=== PATIENT | male | born 1950 | race Caucasian/White ===

== ENCOUNTER 2018-10-06 16:06 | Inpatient (IN) ==
[2018-10-06] MEDS ORDERED: Furosemide 40 MG TABLET PO PRN (17:05)
[2018-10-06] MEDS ORDERED: BENZOYL PEROXIDE APPL TP PRN (17:05)
[2018-10-06] MEDS ORDERED: Albuterol 2.5 MG/3 ML NEBULIZER IH PRN (17:05)
[2018-10-06] MEDS ORDERED: Mag Hydrox/Al Hydrox/Simeth 30 ML UDC PO PRN (17:30)
[2018-10-06] MEDS ORDERED: Ondansetron ODT 4 MG TAB.RAPDIS SL PRN (17:31)
[2018-10-06] MEDS: Gabapentin 300 MG CAPSULE PO SCH ×2 (18:52→20:53)
[2018-10-06] MEDS: Azithromycin 250 MG TABLET PO SCH (20:52)
[2018-10-06] MEDS: Melatonin 3 MG TABLET PO SCH (20:53)
[2018-10-06] MEDS: Morphine Sulfate ER (12 HR) 15 MG TABLET.ER PO SCH (20:53)
[2018-10-06] MEDS: GuaiFENesin Liq 200 MG/10 ML UDC PO SCH (20:53)
[2018-10-06] MEDS: Sucralfate 1 GM TABLET PO SCH (20:53)
[2018-10-06] MEDS: Mirtazapine 15 MG TABLET PO SCH (20:53)
[2018-10-06] MEDS: Budesonide/Formoterol 160/4.5 1 PUFF INH IH SCH (21:26)
[2018-10-07] MEDS: Acetaminophen 325 MG TABLET PO PRN (04:43)
[2018-10-07] MEDS: Levothyroxine 25 MCG TABLET PO SCH (04:43)
[2018-10-07] MEDS: Tiotropium 18 MCG inhalation IH SCH (07:26)
[2018-10-07] MEDS: Budesonide/Formoterol 160/4.5 1 PUFF INH IH SCH ×2 (07:29→20:28)
[2018-10-07] MEDS: Morphine Sulfate ER (12 HR) 15 MG TABLET.ER PO SCH ×2 (07:48→20:03)
[2018-10-07] MEDS: levoFLOXacin 750 MG TABLET PO SCH (07:48)
[2018-10-07] MEDS: Sucralfate 1 GM TABLET PO SCH ×3 (07:48→15:22)
[2018-10-07] MEDS: GuaiFENesin Liq 200 MG/10 ML UDC PO SCH ×3 (07:48→20:03)
[2018-10-07] MEDS: Gabapentin 300 MG CAPSULE PO SCH ×4 (07:48→20:02)
[2018-10-07] MEDS: Metoprolol XL (24 HR) Succ 25 MG TAB.ER.24H PO SCH (07:48)
[2018-10-07] MEDS: Lactobacillus 1 EACH CAP.SPRINK PO SCH (07:48)
[2018-10-07 08:00] LABS: Basophils % 0.3 %; Eosinophils # 0.3 K/mcL (0.0-0.6); Eosinophils % 2.5 %; Hemoglobin 8.7 g/dL (12.9-16.9); Immature Granulocytes % 4.6 % (0-4); Lymphocytes # 0.9 K/mcL (0.6-4.6); Lymphocytes % 9.2 %; Mean Corpuscular HGB Conc 31.1 g/dL (31.6-35.5); Mean Corpuscular Hemoglobin 29.5 pg (28.0-33.3); Mean Corpuscular Volume 94.9 fL (83.0-100.0); Mean Platelet Volume 10.1 fL (9.4-12.4); Monocytes # 1.1 K/mcL (0.0-1.3); Monocytes % 10.4 %; Neutrophils # 7.4 K/mcL (1.6-8.9); Red Blood Count 2.95 M/mcL (4.19-5.50); Red Cell Distribution Width 14.5 % (11.5-14.5); White Blood Count 10.2 K/mcL (4.3-11.1)
[2018-10-07 08:04] LABS: Platelet Count 376 K/mcL (140-400)
[2018-10-07] MEDS: Fluticasone Propionate Nasal 50 MCG/SPRAY BOTTLE NS SCH (09:43)
--- NOTE | 2018-10-07 10:03 | Internal Med History&Physical ---
Date of Encounter: 10/07/18 Time of Encounter: 09:55 Assessment and Plan (1) Upper GI bleed Current visit: Yes Status: Acute Patient is a recent admission to the facility for further rehabilitation after being treated for upper GI bleed and severe anemia at an [facility]. Patient currently states that he still has tarry stools but no quincy blood noted. This morning's hemoglobin was 8.7, which is stable with yesterday's hemoglobin being at 8.6. did become winded today during ambulation with his saturations dropping to 86% while on 4 L. Patient took several minutes to recuperate his saturation greater than 90% while at rest. We will repeat patient's labs in the morning and monitor for signs of active bleeding. Patient's vital signs have remained stable. We will continue with current therapy. (2) Sepsis Current visit: Yes Status: Acute Patient with no current signs of sepsis with vital signs remaining stable and he has remained afebrile. Patient's WBC was 10.2 which is down from his previous elevations approximately one week prior. Patient to continue on current medications and current antibiotics. Qualifiers: Sepsis type: sepsis due to unspecified organism Qualified Code(s): A41.9 - Sepsis, unspecified organism (3) Pneumonia Current visit: No Status: Acute No acute issues. Patient continues to show mild congestion to the base for [place]. No productive cough. Afebrile. Patient to continue on current antibiotics. Qualifiers: Pneumonia type: due to unspecified organism Laterality: bilateral Lung location: lower lobe of lung Qualified Code(s): J18.1 - Lobar pneumonia, unspecified organism (4) Hypertension Current visit: No Status: Chronic Patient's vital signs remained stable. We will continue on current medications. Qualifiers: Hypertension type: unspecified Qualified Code(s): I10 - Essential (primary) hypertension Internal Medicine - H&P: HPI Chief complaint: Upper GI bleed Admitted From: Hospital to Hospital Transfer Plans for Post Hospital Care: Home History of present illness: Mr. Garcia is a 68 year old male, who was transferred to this facility from [facility] after being treated for an acute upper GI bleed, pneumonia and sepsis. Patient also with a history of HTN, hypothyroidism, anx/dep, chronic back pain, and recurrent GI bleeds and s/p hemicolectomy. He had presented at [facility] on 09/24/2018 with several episodes blood in his stools. Patient's initial labs showed he was anemic with hemoglobin of 9. In the hospital, GI took patient for EGD/enteroscopy 09/24 showing esophageal polyps and single red spot in stomach treated with APC. Colonoscopy 09/24 and again 09/26 with old blood throughout entire colon, but no acute bleeding after extensive washing. Tagged RBC scan 09/25, but was unable to identify additional source. Continued bleeding and transfusion requirements, however (total 8u), and a repeat EGD/push enteroscopy on 09/30 showed nonbleeding cratered gastric ulcer 2cm, which was cauterized, and a single 5mm nonbleeding angiodysplastic lesion in stomach also cauterized. No further bleeding and Hb thereafter remained stable. Hospital course complicated by pneumonia and sepsis requiring abx; no source identified and pt de-escalated from zosyn to levaquin after fever and leukocytosis resolved. Pt was deconditioned and transferred to this facility for further rehabilitation This morning patient appears relaxed and states that he had ambulated earlier with physical therapy and became very winded. Therapy has reported patient desaturated while ambulating on 4 L of oxygen to as low as 86%. They reported patient took several minutes to recover his saturations greater than 90% while resting. Patient denied any chest discomforts or palpitations. Patient denies any current productive cough. Today's hemoglobin was measured at 8.7. Patient states that he continues to have dark tarry stools but no quincy blood observed. Past Med Surg Social Fam HX - Past Medical History Medical history: COPD, GERD, GI bleed, hyperlipidemia, hypertension, thyroid disease, other Additional medical history: Skin cancer on the face- basal cell Psychiatric history: anxiety, depression - Past Surgical History Surgical History: colectomy, other Additional surgical history: laminectomy, Right foot surgery, Left wrist surgery - Social History Smoking Status: Former smoker Smokeless Tobacco Status: No Alcohol use: rarely Drug use: none - Family History Sister Living Status: Age at : 80 Hx Family Cardiac Disorders: Yes (CHF) Hx Family Respiratory Disorders: Yes (COPD) Mother Living Status: Hx Family Cardiac Disorders: Yes Hx Family Respiratory Disorders: No Hx Family Cancer: Yes (Lymphoma) Hx Family GI Disorders: Yes (Ulcers) Hx Family Endocrine Disorder: No Hx Family Neuromuscular Disorders: No Hx Family Neurologic Disorders: No Hx Family HEENT Disorders: No Hx Family Autoimmune Disorders: No Father Living Status: Hx Family Cancer: Yes Internal Medicine - H&P: Meds Albuterol Neb [Proventil Neb] 2.5 mg IH QID PRN 12/23/15 [History] Budesonide/Formoterol 160/4.5 [Symbicort 160/4.5] 2 puff IH BID 12/23/15 [History] Fluticasone Propionate Nasal [Flonase] 2 spray NS DAILY 12/23/15 [History] Gabapentin [Neurontin] 1,200 mg PO HS 12/23/15 [History] Gabapentin [Neurontin] 900 mg PO QAM 12/23/15 [History] L. Acidophilus/Pectin, [place] [Acidophilus Probiotic Capsule] 1 cap PO DAILY 12/23/15 [History] Levothyroxine [Synthroid] 25 mcg PO DAILY 12/23/15 [History] Albuterol Sulfate [Albuterol Inhaler] 2 puff IH Q6HR PRN 08/14/16 [History] Furosemide [Lasix] 40 mg PO DAILY PRN 06/10/18 [History] Meloxicam [Mobic] 7.5 mg PO BID 06/10/18 [History] Metoprolol Succinate [Toprol Xl] 12.5 mg PO DAILY 06/10/18 [History] Tiotropium [place] [Spiriva Respimat] 2 puff IH DAILY 06/10/18 [History] guaiFENesin [Guaifenesin] 400 mg PO TID 06/10/18 [History] Ergocalciferol (VITAMIN D2) [Vitamin D2] 50,000 unit PO FR 09/23/18 [History] Escitalopram [Lexapro] 20 mg PO QAM 09/23/18 [History] Melatonin [Melatin] 3 mg PO HS 09/23/18 [History] Prazosin [Minipress] 5 mg PO QAM 09/23/18 [History] Atorvastatin [Lipitor] 20 mg PO DAILY 09/25/18 [History] Azithromycin [Zithromax] 500 mg PO MOWEFR 09/25/18 [History] Benzoyl Peroxide [Bpo] 1 appl TP DAILY PRN 09/25/18 [History] Gabapentin [Neurontin] 900 mg PO QPM 09/25/18 [History] Mirtazapine [Remeron] 15 mg PO HS 09/25/18 [History] Lisinopril [Zestril] 20 mg PO DAILY #0 10/06/18 [Rx] Morphine Sulfate [Arymo ER] 30 mg PO BID 2 Days #4 tab.po.er 10/06/18 [Rx] Omeprazole [PriLOSEC] 40 mg PO BID #60 cap 10/06/18 [Rx] Sucralfate [Carafate] 1 gm PO QIDAC #99 tablet 10/06/18 [Rx] levoFLOXacin [Levaquin] 750 mg PO DAILY #5 tablet 10/06/18 [Rx] Allergy/AdvReac Type Severity Reaction Status Date / Time No Known Allergies Allergy Verified 09/25/18 10:36 All Systems PM: A 10-system review of systems was performed and is negative for pertinent findings except as documented above in the HPI. - Constitutional Constitutional: as per HPI - EENT Eyes: as per HPI Ears: as per HPI Nose, mouth and throat: as per HPI - Breasts Breasts: as per HPI - Cardiovascular Cardiovascular ROS IM: as per HPI - Respiratory Respiratory: as per HPI - Gastrointestinal Gastrointestinal: as per HPI - Genitourinary Genitourinary ROS male: as per HPI - Musculoskeletal Musculoskeletal ROS IM: as per HPI - Integumentary Integumentary IM: as per HPI - Neurological Neurological ROS: as per HPI - Psychiatric Psychiatric: as per HPI - Constitutional Vitals: Temp Pulse Resp BP Pulse Ox 97.6 F 93 15 132/78 90 10/07/18 07:16 10/07/18 07:16 10/07/18 07:28 10/07/18 07:16 10/07/18 07:28 General appearance: Present: A&O X 3, pleasant - Head Head exam: Present: atraumatic, normocephalic - Eye Eye exam: Present: PERRL, conjuntiva pink, sclera anicteric Pupils: Present: PERRL - Neck Neck exam general surgery: Present: supple, trachea midline. Absent: lymphadenopathy - Respiratory Respiratory exam: Present: CTAB, rales. Absent: accessory muscle use, rhonchi, wheezes Additional comments: Lungs are clear throughout upper han[place] but noted fine scattered rales throughout his lower posterior bases. Respiratory effort appears relaxed while at rest. No productive cough noted - Cardiovascular Cardiovascular exam: Present: RRR, +S1, +S2. Absent: diastolic murmur, gallop, rubs, systolic murmur - GI/Abdominal GI/Abdominal exam: Present: normal bowel sounds, soft, no peritoneal signs. Absent: distended, tenderness - Extremities Exam Extremities exam: Present: warm, radial pulses palpable and symmetrical. Absent : calf tenderness, cyanotic, pedal edema - Neurological Exam Neurological exam: Present: CN II-XII intact, oriented X3, no focal deficits. Absent: pronater drift, facial droop, speech deficit - Skin Skin exam: Present: dry, intact Internal Med - H&P Results - Labs CBC & Chem 7: 10/07/18 07:23 Labs: Short CBC 10/07/18 Range/Units 07:23 WBC 10.2 (4.3-11.1) K/mcL Hgb 8.7 L (12.9-16.9) g/dL Hct 28.0 L (37.5-50.1) % Plt Count 376 D (140-400) K/mcL Neutrophils # 7.4 (1.6-8.9) K/mcL
[2018-10-07 10:21] LABS: Alanine Aminotransferase 8 Units/L (7-52); Albumin 2.3 g/dL (3.5-5.7); Albumin/Globulin Ratio 0.8 (1.1-2.2); Alkaline Phosphatase 65 Units/L (34-104); Aspartate Amino Transferase 34 Units/L (13-39); BUN/Creatinine Ratio 17 (6-26); Bilirubin,Total 0.3 mg/dL (0.3-1.0); Blood Urea Nitrogen 13 mg/dL (8-23); Calcium 8.5 mg/dL (8.6-10.3); Carbon Dioxide 35 mEq/L (23-29); Chloride 97 mEq/L (98-107); Globulin 2.9 g/dL (2.4-3.5); Glucose 95 mg/dL (70-105); Magnesium 2.2 mg/dL (1.6-2.6); Osmolality,Calculated 282 (280-300); Potassium 3.6 mEq/L (3.5-5.1); Sodium 136 mEq/L (136-145); Total Protein 5.2 g/dL (6.4-8.9); eGFR For African Americans > 60 (> 60); eGFR For Non-African Americans > 60 (> 60)
[2018-10-07] MEDS: Mirtazapine 15 MG TABLET PO SCH (20:02)
[2018-10-07] MEDS: Melatonin 3 MG TABLET PO SCH (20:04)
[2018-10-08] MEDS: Sucralfate 1 GM TABLET PO SCH ×5 (00:01→20:36)
[2018-10-08] MEDS: Levothyroxine 25 MCG TABLET PO SCH (05:15)
[2018-10-08 06:34] LABS: Hematocrit 28.7 % (37.5-50.1); Hemoglobin 8.6 g/dL (12.9-16.9); Mean Corpuscular Volume 96.6 fL (83.0-100.0); Platelet Count 409 K/mcL (140-400); Red Blood Count 2.97 M/mcL (4.19-5.50); Red Cell Distribution Width 14.6 % (11.5-14.5); White Blood Count 10.4 K/mcL (4.3-11.1)
[2018-10-08 06:55] LABS: Alanine Aminotransferase 17 Units/L (7-52); Albumin 2.4 g/dL (3.5-5.7); Albumin/Globulin Ratio 0.8 (1.1-2.2); Alkaline Phosphatase 79 Units/L (34-104); Aspartate Amino Transferase 72 Units/L (13-39); BUN/Creatinine Ratio 16 (6-26); Bilirubin,Total 0.3 mg/dL (0.3-1.0); Blood Urea Nitrogen 12 mg/dL (8-23); Calcium 8.6 mg/dL (8.6-10.3); Carbon Dioxide 37 mEq/L (23-29); Chloride 98 mEq/L (98-107); Globulin 2.9 g/dL (2.4-3.5); Glucose 105 mg/dL (70-105); Magnesium 2.3 mg/dL (1.6-2.6); Osmolality,Calculated 290 (280-300); Potassium 4.3 mEq/L (3.5-5.1); Sodium 140 mEq/L (136-145); Total Protein 5.3 g/dL (6.4-8.9); eGFR For African Americans > 60 (> 60); eGFR For Non-African Americans > 60 (> 60)
[2018-10-08] MEDS: Metoprolol XL (24 HR) Succ 25 MG TAB.ER.24H PO SCH (08:03)
[2018-10-08] MEDS: Morphine Sulfate ER (12 HR) 15 MG TABLET.ER PO SCH (08:03)
[2018-10-08] MEDS: levoFLOXacin 750 MG TABLET PO SCH (08:03)
[2018-10-08] MEDS: Lactobacillus 1 EACH CAP.SPRINK PO SCH (08:03)
[2018-10-08] MEDS: GuaiFENesin Liq 200 MG/10 ML UDC PO SCH ×3 (08:04→20:37)
[2018-10-08] MEDS: Fluticasone Propionate Nasal 50 MCG/SPRAY BOTTLE NS SCH (08:04)
[2018-10-08] MEDS: Gabapentin 300 MG CAPSULE PO SCH ×4 (08:04→20:36)
--- NOTE | 2018-10-08 09:46 | Internal Med Progress Note ---
Date of Encounter: 10/08/18 Time of Encounter: 09:35 - Assessment and plan (1) Upper GI bleed Current Visit: Yes Status: Acute Assessment and plan: No acute issues. Patient continues to state that he has had dark stools but no quincy blood is been noted. Patient's labs showed hemoglobin stable at 8.6. Patient denies any abdominal cramping. We will continue to monitor closely. (2) Sepsis Current Visit: Yes Status: Acute Assessment and plan: No acute issues. Patient has remained afebrile with vital signs stable. Patient's last WBC was 10.4. Qualifiers: Sepsis type: sepsis due to unspecified organism Qualified Code(s): A41.9 - Sepsis, unspecified organism (3) Pneumonia Current Visit: No Status: Acute Assessment and plan: Patient continues to have fine basilar rales but otherwise no congestion or wheezes heard. No productive cough and has remained afebrile. Continues to finish out his round of antibiotics. We will continue to monitor closely. Qualifiers: Pneumonia type: due to unspecified organism Laterality: bilateral Lung location: lower lobe of lung Qualified Code(s): J18.1 - Lobar pneumonia, unspecified organism (4) Hypertension Current Visit: No Status: Chronic Assessment and plan: Vital signs are stable. We will continue with current medications Qualifiers: Hypertension type: unspecified Qualified Code(s): I10 - Essential (primary) hypertension - Time Spent With Patient less than 15 minutes - Subjective Interval history: Patient appears relaxed currently denies any discomforts or shortness of breath. Patient reportedly continues to desaturation while on oxygen and ambulating. Patient reportedly dropped to the mid 80s and her therapy takes several minutes to recover to a saturation greater than 90%. Patient also endorses orthopnea. Patient denies any chest discomforts or palpitations. Patient denies any productive cough. Patient reportedly is oxygen dependent and wears oxygen at home - Constitutional Vitals: Temp Pulse Resp BP Pulse Ox 98.3 F 83 16 120/72 94 10/08/18 07:38 10/08/18 07:38 10/08/18 07:38 10/08/18 07:38 10/08/18 07:38 General appearance: Present: A&O X 3, pleasant - Head Head exam: Present: atraumatic, normocephalic - Eye Eye exam: Present: PERRL, conjuntiva pink, sclera anicteric Pupils: Present: PERRL - Neck Neck exam general surgery: Present: supple, trachea midline. Absent: lymphadenopathy - Respiratory Respiratory exam: Present: CTAB, rales. Absent: accessory muscle use, rhonchi, wheezes Additional comments: Lungs remain clear throughout upper [place] with fine posterior bibasilar rales heard. Respiratory effort appears relaxed while at lunch. No productive cough noted. - Cardiovascular Cardiovascular exam: Present: RRR, +S1, +S2. Absent: diastolic murmur, gallop, rubs, systolic murmur - GI/Abdominal GI/Abdominal exam: Present: normal bowel sounds, soft, no peritoneal signs. A bsent: distended, tenderness - Extremities Exam Extremities exam: Present: warm, radial pulses palpable and symmetrical. Absent: calf tenderness, cyanotic, pedal edema - Neurological Exam Neurological exam: Present: CN II-XII intact, oriented X3, no focal deficits. Absent: pronater drift, facial droop, speech deficit - Skin Skin exam: Present: dry, intact Internal Medicine: Result - Labs CBC & Chem 7: 10/08/18 06:00 10/08/18 06:00 Labs: Short CBC 10/08/18 Range/Units 06:00 WBC 10.4 (4.3-11.1) K/mcL Hgb 8.6 L (12.9-16.9) g/dL Hct 28.7 L (37.5-50.1) % Plt Count 409 H (140-400) K/mcL BMP 10/07/18 10/08/18 07:23 06:00 Sodium 136 140 Potassium 3.6 4.3 Chloride 97 L 98 Carbon Dioxide 35 H 37 H BUN 13 12 Creatinine 0.78 0.76 Glucose 95 105 Calcium 8.5 L 8.6 Liver Function 10/07/18 10/08/18 Range/Units 07:23 06:00 Total Bilirubin 0.3 0.3 (0.3-1.0) mg/dL AST 34 72 H (13-39) Units/L ALT 8 17 (7-52) Units/L Alkaline Phosphatase 65 79 (34-104) Units/L Albumin 2.3 L 2.4 L (3.5-5.7) g/dL Consult Discharge Plan - Plan Referrals: Breezy Stover MD [Primary Care Provider] -
[2018-10-08] MEDS: Budesonide/Formoterol 160/4.5 1 PUFF INH IH SCH ×2 (10:32→20:11)
[2018-10-08] MEDS: Tiotropium 18 MCG inhalation IH SCH (10:32)
[2018-10-08] MEDS: Azithromycin 250 MG TABLET PO SCH (16:42)
[2018-10-08] MEDS: Mirtazapine 15 MG TABLET PO SCH (20:36)
[2018-10-08] MEDS: Melatonin 3 MG TABLET PO SCH (20:36)
[2018-10-08] MEDS: Morphine Sulfate ER (12 HR) 30 MG TABLET.ER PO SCH (20:36)
[2018-10-09] MEDS: Levothyroxine 25 MCG TABLET PO SCH (05:02)
[2018-10-09 05:28] LABS: Hemoglobin 8.2 g/dL (12.9-16.9); Mean Corpuscular HGB Conc 30.4 g/dL (31.6-35.5); Mean Corpuscular Hemoglobin 29.2 pg (28.0-33.3); Mean Corpuscular Volume 96.1 fL (83.0-100.0); Mean Platelet Volume 9.9 fL (9.4-12.4); Platelet Count 422 K/mcL (140-400); Red Blood Count 2.81 M/mcL (4.19-5.50); Red Cell Distribution Width 14.5 % (11.5-14.5)
[2018-10-09] MEDS: Acetaminophen 325 MG TABLET PO PRN (08:26)
[2018-10-09] MEDS: Gabapentin 300 MG CAPSULE PO SCH ×4 (08:26→21:44)
[2018-10-09] MEDS: Metoprolol XL (24 HR) Succ 25 MG TAB.ER.24H PO SCH (08:26)
[2018-10-09] MEDS: levoFLOXacin 750 MG TABLET PO SCH (08:27)
[2018-10-09] MEDS: Morphine Sulfate ER (12 HR) 30 MG TABLET.ER PO SCH ×2 (08:27→21:45)
[2018-10-09] MEDS: Sucralfate 1 GM TABLET PO SCH ×4 (08:27→22:00)
[2018-10-09] MEDS: GuaiFENesin Liq 200 MG/10 ML UDC PO SCH ×3 (08:27→21:45)
[2018-10-09] MEDS: Lactobacillus 1 EACH CAP.SPRINK PO SCH (08:27)
[2018-10-09] MEDS: Fluticasone Propionate Nasal 50 MCG/SPRAY BOTTLE NS SCH (08:31)
--- NOTE | 2018-10-09 09:45 | Internal Med Progress Note ---
Date of Encounter: 10/09/18 Time of Encounter: 09:42 - Assessment and plan (1) Upper GI bleed Current Visit: Yes Status: Acute Assessment and plan: No acute issues. Patient continues to state that he has had dark stools but no quincy blood is been noted. Patient's labs showed hemoglobin stable at 8.2. Patient denies any abdominal cramping. We will continue to monitor closely. (2) Sepsis Current Visit: Yes Status: Acute Assessment and plan: No acute issues. Patient has remained afebrile with vital signs stable. Patient's last WBC was 10.4. Qualifiers: Sepsis type: sepsis due to unspecified organism Qualified Code(s): A41.9 - Sepsis, unspecified organism (3) Pneumonia Current Visit: No Status: Acute Assessment and plan: Patient continues to have fine basilar rales but otherwise no congestion or wheezes heard. Patient states he has a productive cough with thick white sputum received. He has remained afebrile. Continues to finish out his round of antibiotics. We will continue to monitor closely. Qualifiers: Pneumonia type: due to unspecified organism Laterality: bilateral Lung location: lower lobe of lung Qualified Code(s): J18.1 - Lobar pneumonia, unspecified organism (4) Hypertension Current Visit: No Status: Chronic Assessment and plan: Vital signs are stable. We will continue with current medications Qualifiers: Hypertension type: unspecified Qualified Code(s): I10 - Essential (primary) hypertension - Time Spent With Patient less than 15 minutes - Subjective Interval history: Patient appears relaxed currently denies any discomforts or shortness of breath. Patient states that he has not desaturated while on oxygen and ambulating this morning. Patient denies any chest discomforts or palpitations. Patient states he has productive cough with a white thick sputum received. Patient reportedly is oxygen dependent and wears oxygen at home - Constitutional Vitals: Temp Pulse Resp BP Pulse Ox 98.5 F 85 16 131/76 92 10/09/18 06:48 10/09/18 06:48 10/09/18 06:48 10/09/18 06:48 10/09/18 06:48 General appearance: Present: A&O X 3, pleasant - Head Head exam: Present: atraumatic, normocephalic - Eye Eye exam: Present: PERRL, conjuntiva pink, sclera anicteric Pupils: Present: PERRL - Neck Neck exam general surgery: Present: supple, trachea midline. Absent: lymphadenopathy - Respiratory Respiratory exam: Present: CTAB, rales. Absent: accessory muscle use, rhonchi, wheezes Additional comments: Lungs are clear throughout upper [place] with fine rales heard scattered throughout lower third of his lung han[place]. Patient states a productive cough but none noted during exam. Respiratory effort appears relaxed while at rest - Cardiovascular Cardiovascular exam: Present: RRR, +S1, +S2. Absent: diastolic murmur, gallop, rubs, systolic murmur - GI/Abdominal GI/Abdominal exam: Present: normal bowel sounds, soft, no peritoneal signs. Absent: distended, tenderness - Extremities Exam Extremities exam: Present: warm, radial pulses palpable and symmetrical. Absent: calf tenderness, cyanotic, pedal edema - Neurological Exam Neurological exam: Present: CN II-XII intact, oriented X3, no focal deficits. Absent: pronater drift, facial droop, speech deficit - Skin Skin exam: Present: dry, intact Internal Medicine: Result - Labs CBC & Chem 7: 10/09/18 04:55 10/08/18 06:00 Labs: Short CBC 10/09/18 Range/Units 04:55 WBC 10.0 (4.3-11.1) K/mcL Hgb 8.2 L (12.9-16.9) g/dL Hct 27.0 L (37.5-50.1) % Plt Count 422 H (140-400) K/mcL Consult Discharge Plan - Plan Referrals: Breezy Stover MD [Primary Care Provider] -
[2018-10-09] MEDS: Tiotropium 18 MCG inhalation IH SCH (10:40)
[2018-10-09] MEDS: Budesonide/Formoterol 160/4.5 1 PUFF INH IH SCH ×2 (10:43→22:00)
[2018-10-09] MEDS: Melatonin 3 MG TABLET PO SCH (21:44)
[2018-10-09] MEDS: Mirtazapine 15 MG TABLET PO SCH (21:44)
[2018-10-10] MEDS: Levothyroxine 25 MCG TABLET PO SCH (04:56)
[2018-10-10] MEDS: GuaiFENesin Liq 200 MG/10 ML UDC PO SCH ×3 (07:43→21:59)
[2018-10-10] MEDS: Sucralfate 1 GM TABLET PO SCH ×4 (07:44→21:59)
[2018-10-10] MEDS: Lactobacillus 1 EACH CAP.SPRINK PO SCH (07:44)
[2018-10-10] MEDS: levoFLOXacin 750 MG TABLET PO SCH (07:44)
[2018-10-10] MEDS: Morphine Sulfate ER (12 HR) 30 MG TABLET.ER PO SCH ×2 (07:44→21:59)
[2018-10-10] MEDS: Gabapentin 300 MG CAPSULE PO SCH ×4 (07:44→21:58)
[2018-10-10] MEDS: Metoprolol XL (24 HR) Succ 25 MG TAB.ER.24H PO SCH (07:45)
[2018-10-10] MEDS: Fluticasone Propionate Nasal 50 MCG/SPRAY BOTTLE NS SCH (07:58)
--- NOTE | 2018-10-10 09:29 | Internal Med Progress Note ---
Date of Encounter: 10/10/18 Time of Encounter: 09:23 - Assessment and plan (1) Upper GI bleed Current Visit: Yes Status: Acute Assessment and plan: No acute issues. Patient patient states that he had a bowel movement yesterday and stool was no longer dark. Patient's labs showed hemoglobin stable at 8.2. Patient denies any abdominal cramping. We will continue to monitor closely. (2) Sepsis Current Visit: Yes Status: Acute Assessment and plan: No acute issues. Patient has remained afebrile with vital signs stable. Patient's last WBC was 10.4. Problem is resolved Qualifiers: Sepsis type: sepsis due to unspecified organism Qualified Code(s): A41.9 - Sepsis, unspecified organism (3) Pneumonia Current Visit: No Status: Acute Assessment and plan: Patient continues to have fine basilar rales but otherwise no congestion or wheezes heard. Patient states he has a productive cough with thick white sputum received. He has remained afebrile. Continues to finish out his round of antibiotics. We will continue to monitor closely. Qualifiers: Pneumonia type: due to unspecified organism Laterality: bilateral Lung location: lower lobe of lung Qualified Code(s): J18.1 - Lobar pneumonia, unspecified organism (4) Hypertension Current Visit: No Status: Chronic Assessment and plan: Vital signs are stable. We will continue with current medications Qualifiers: Hypertension type: unspecified Qualified Code(s): I10 - Essential (primary) hypertension - Time Spent With Patient less than 15 minutes - Subjective Interval history: Patient appears relaxed currently denies any discomforts or shortness of breath. He has productive cough with a white thick sputum received. Patient reportedly is oxygen dependent and wears oxygen at home. This morning per therapy, he desatuated to mid-80's while walking with O2 at 4L. - Constitutional Vitals: Temp Pulse Resp BP Pulse Ox 98.3 F 85 16 135/84 94 10/10/18 07:22 10/10/18 07:22 10/10/18 07:22 10/10/18 07:22 10/10/18 07:48 General appearance: Present: A&O X 3, pleasant - Head Head exam: Present: atraumatic, normocephalic - Eye Eye exam: Present: PERRL, conjuntiva pink, sclera anicteric Pupils: Present: PERRL - Neck Neck exam general surgery: Present: supple, trachea midline. Absent: lymphadenopathy - Respiratory Respiratory exam: Present: CTAB, rales. Absent: accessory muscle use, rhonchi, wheezes Additional comments: Patient continues with fine posterior bibasilar rales otherwise lungs clear. Respiratory effort appears relaxed respiratory - Cardiovascular Cardiovascular exam: Present: RRR, +S1, +S2. Absent: diastolic murmur, gallop, rubs, systolic murmur - GI/Abdominal GI/Abdominal exam: Present: normal bowel sounds, soft, no peritoneal signs. Absent: distended, tenderness - Extremities Exam Extremities exam: Present: warm, radial pulses palpable and symmetrical. Absent: calf tenderness, cyanotic, pedal edema - Neurological Exam Neurological exam: Present: CN II-XII intact, oriented X3, no focal deficits. Absent: pronater drift, facial droop, speech deficit - Skin Skin exam: Present: dry, intact Internal Medicine: Result - Labs CBC & Chem 7: 10/09/18 04:55 10/08/18 06:00 Consult Discharge Plan - Plan Referrals: Breezy Stover MD [Primary Care Provider] -
[2018-10-10] MEDS: Tiotropium 18 MCG inhalation IH SCH (10:24)
[2018-10-10] MEDS: Budesonide/Formoterol 160/4.5 1 PUFF INH IH SCH ×2 (10:25→20:25)
[2018-10-10] MEDS ORDERED: Ergocalciferol (VIT D2) 50,000 UNIT (1.25MG) CAP PO SCH ×2 (17:05→17:45)
[2018-10-10] MEDS: Azithromycin 250 MG TABLET PO SCH (17:34)
[2018-10-10] MEDS: Melatonin 3 MG TABLET PO SCH (21:58)
[2018-10-10] MEDS: Mirtazapine 15 MG TABLET PO SCH (21:59)
[2018-10-11] MEDS: Levothyroxine 25 MCG TABLET PO SCH (05:09)
[2018-10-11 05:50] LABS: Hematocrit 27.6 % (37.5-50.1); Hemoglobin 8.4 g/dL (12.9-16.9); Mean Corpuscular HGB Conc 30.4 g/dL (31.6-35.5); Mean Corpuscular Volume 95.2 fL (83.0-100.0); Mean Platelet Volume 9.6 fL (9.4-12.4); Platelet Count 411 K/mcL (140-400); Red Cell Distribution Width 14.6 % (11.5-14.5); White Blood Count 9.9 K/mcL (4.3-11.1)
[2018-10-11 06:07] LABS: Alanine Aminotransferase 23 Units/L (7-52); Albumin 2.5 g/dL (3.5-5.7); Albumin/Globulin Ratio 0.8 (1.1-2.2); Alkaline Phosphatase 76 Units/L (34-104); Aspartate Amino Transferase 52 Units/L (13-39); BUN/Creatinine Ratio 18 (6-26); Bilirubin,Total 0.2 mg/dL (0.3-1.0); Blood Urea Nitrogen 14 mg/dL (8-23); Calcium 8.6 mg/dL (8.6-10.3); Carbon Dioxide 30 mEq/L (23-29); Chloride 104 mEq/L (98-107); Globulin 3.3 g/dL (2.4-3.5); Glucose 101 mg/dL (70-105); Magnesium 2.1 mg/dL (1.6-2.6); Osmolality,Calculated 287 (280-300); Potassium 4.1 mEq/L (3.5-5.1); Sodium 138 mEq/L (136-145); Total Protein 5.8 g/dL (6.4-8.9); eGFR For African Americans > 60 (> 60); eGFR For Non-African Americans > 60 (> 60)
[2018-10-11] MEDS: Budesonide/Formoterol 160/4.5 1 PUFF INH IH SCH ×2 (07:27→20:41)
[2018-10-11] MEDS: Tiotropium 18 MCG inhalation IH SCH (07:28)
[2018-10-11] MEDS: levoFLOXacin 750 MG TABLET PO SCH (08:31)
[2018-10-11] MEDS: Lactobacillus 1 EACH CAP.SPRINK PO SCH (08:31)
[2018-10-11] MEDS: Metoprolol XL (24 HR) Succ 25 MG TAB.ER.24H PO SCH (08:31)
[2018-10-11] MEDS: GuaiFENesin Liq 200 MG/10 ML UDC PO SCH ×3 (08:31→20:41)
[2018-10-11] MEDS: Morphine Sulfate ER (12 HR) 30 MG TABLET.ER PO SCH ×2 (08:31→20:40)
[2018-10-11] MEDS: Fluticasone Propionate Nasal 50 MCG/SPRAY BOTTLE NS SCH (08:31)
[2018-10-11] MEDS: Gabapentin 300 MG CAPSULE PO SCH ×4 (08:32→20:40)
[2018-10-11] MEDS: Sucralfate 1 GM TABLET PO SCH ×4 (08:32→20:41)
--- NOTE | 2018-10-11 12:02 | Internal Med Progress Note ---
Date of Encounter: 10/11/18 Time of Encounter: 12:00 - Subjective Interval history: no new changes. denies any new issues problems. - Constitutional Vitals: Temp Pulse Resp BP Pulse Ox 98.6 F 77 16 147/85 95 10/11/18 06:37 10/11/18 06:37 10/11/18 07:27 10/11/18 06:37 10/11/18 07:27 General appearance: Present: A&O X 3, pleasant - Neck Neck exam general surgery: Present: supple, trachea midline. Absent: lymphadenopathy - Respiratory Respiratory exam: Present: decreased breath sounds, CTAB. Absent: accessory muscle use, rales, rhonchi, wheezes - Cardiovascular Cardiovascular exam: Present: RRR, +S1, +S2. Absent: diastolic murmur, gallop, rubs, systolic murmur Internal Medicine: Result - Labs CBC & Chem 7: 10/11/18 05:20 10/11/18 05:20 Labs: Short CBC 10/11/18 Range/Units 05:20 WBC 9.9 (4.3-11.1) K/mcL Hgb 8.4 L (12.9-16.9) g/dL Hct 27.6 L (37.5-50.1) % Plt Count 411 H (140-400) K/mcL BMP 10/11/18 05:20 Sodium 138 Potassium 4.1 Chloride 104 Carbon Dioxide 30 H BUN 14 Creatinine 0.78 Glucose 101 Calcium 8.6 Liver Function 10/11/18 Range/Units 05:20 Total Bilirubin 0.2 L (0.3-1.0) mg/dL AST 52 H (13-39) Units/L ALT 23 (7-52) Units/L Alkaline Phosphatase 76 (34-104) Units/L Albumin 2.5 L (3.5-5.7) g/dL Consult Discharge Plan - Plan Referrals: Breezy Stover MD [Primary Care Provider] -
[2018-10-11] MEDS: Mirtazapine 15 MG TABLET PO SCH (20:40)
[2018-10-11] MEDS: Melatonin 3 MG TABLET PO SCH (20:41)
[2018-10-12] MEDS: Sucralfate 1 GM TABLET PO SCH ×4 (05:43→21:04)
[2018-10-12] MEDS: Levothyroxine 25 MCG TABLET PO SCH (05:43)
[2018-10-12] MEDS: Budesonide/Formoterol 160/4.5 1 PUFF INH IH SCH ×2 (07:16→20:06)
[2018-10-12] MEDS: Tiotropium 18 MCG inhalation IH SCH (07:16)
[2018-10-12] MEDS: Fluticasone Propionate Nasal 50 MCG/SPRAY BOTTLE NS SCH (07:41)
[2018-10-12] MEDS: GuaiFENesin Liq 200 MG/10 ML UDC PO SCH ×3 (07:41→21:03)
[2018-10-12] MEDS: Lactobacillus 1 EACH CAP.SPRINK PO SCH (07:42)
[2018-10-12] MEDS: Morphine Sulfate ER (12 HR) 30 MG TABLET.ER PO SCH ×2 (07:42→21:02)
[2018-10-12] MEDS: levoFLOXacin 750 MG TABLET PO SCH (07:42)
[2018-10-12] MEDS: Metoprolol XL (24 HR) Succ 25 MG TAB.ER.24H PO SCH (07:42)
[2018-10-12] MEDS: Gabapentin 300 MG CAPSULE PO SCH ×4 (07:42→21:03)
--- NOTE | 2018-10-12 12:36 | Internal Med Progress Note ---
Date of Encounter: 10/12/18 Time of Encounter: 12:30 - Subjective Interval history: no new changes. denies any new issues problems. - Constitutional Vitals: Temp Pulse Resp BP Pulse Ox 98.3 F 78 14 137/75 93 10/12/18 07:43 10/12/18 07:43 10/12/18 07:16 10/12/18 07:43 10/12/18 07:43 General appearance: Present: A&O X 3, pleasant - Neck Neck exam general surgery: Present: supple, trachea midline. Absent: lymphadenopathy - Respiratory Respiratory exam: Present: decreased breath sounds, CTAB - Cardiovascular Cardiovascular exam: Present: RRR, +S1, +S2. Absent: diastolic murmur, gallop, rubs, systolic murmur - GI/Abdominal GI/Abdominal exam: Present: normal bowel sounds, soft, no peritoneal signs. Absent: distended, tenderness Internal Medicine: Result - Labs CBC & Chem 7: 10/11/18 05:20 10/11/18 05:20 Consult Discharge Plan - Plan Referrals: Breezy Stover MD [Primary Care Provider] -
[2018-10-12] MEDS: Mirtazapine 15 MG TABLET PO SCH (21:02)
[2018-10-12] MEDS: Melatonin 3 MG TABLET PO SCH (21:03)
[2018-10-12] MEDS: Acetaminophen 325 MG TABLET PO PRN (21:11)
[2018-10-13] MEDS: Sucralfate 1 GM TABLET PO SCH ×4 (05:08→21:14)
[2018-10-13] MEDS: Levothyroxine 25 MCG TABLET PO SCH (05:08)
[2018-10-13 05:27] LABS: Basophils # 0.1 K/mcL (0.0-0.2); Basophils % 0.8 %; Eosinophils # 0.3 K/mcL (0.0-0.6); Eosinophils % 2.5 %; Hematocrit 28.6 % (37.5-50.1); Hemoglobin 8.7 g/dL (12.9-16.9); Lymphocytes # 1.5 K/mcL (0.6-4.6); Mean Corpuscular HGB Conc 30.4 g/dL (31.6-35.5); Mean Corpuscular Hemoglobin 29.3 pg (28.0-33.3); Mean Corpuscular Volume 96.3 fL (83.0-100.0); Mean Platelet Volume 9.5 fL (9.4-12.4); Monocytes # 0.8 K/mcL (0.0-1.3); Monocytes % 7.9 %; Neutrophils # 7.3 K/mcL (1.6-8.9); Platelet Count 340 K/mcL (140-400); Red Blood Count 2.97 M/mcL (4.19-5.50); Red Cell Distribution Width 14.7 % (11.5-14.5); Segmented Neutrophils % 69.8 %; White Blood Count 10.5 K/mcL (4.3-11.1)
[2018-10-13 05:45] LABS: Alanine Aminotransferase 13 Units/L (7-52); Albumin 2.5 g/dL (3.5-5.7); Albumin/Globulin Ratio 0.8 (1.1-2.2); Alkaline Phosphatase 68 Units/L (34-104); Aspartate Amino Transferase 28 Units/L (13-39); BUN/Creatinine Ratio 19 (6-26); Bilirubin,Total 0.2 mg/dL (0.3-1.0); Blood Urea Nitrogen 15 mg/dL (8-23); Calcium 8.6 mg/dL (8.6-10.3); Carbon Dioxide 28 mEq/L (23-29); Chloride 105 mEq/L (98-107); Globulin 3.2 g/dL (2.4-3.5); Glucose 100 mg/dL (70-105); Osmolality,Calculated 287 (280-300); Potassium 4.8 mEq/L (3.5-5.1); Sodium 138 mEq/L (136-145); Total Protein 5.7 g/dL (6.4-8.9); eGFR For African Americans > 60 (> 60); eGFR For Non-African Americans > 60 (> 60)
[2018-10-13] MEDS: GuaiFENesin Liq 200 MG/10 ML UDC PO SCH ×3 (08:17→20:56)
[2018-10-13] MEDS: Fluticasone Propionate Nasal 50 MCG/SPRAY BOTTLE NS SCH (08:17)
[2018-10-13] MEDS: Gabapentin 300 MG CAPSULE PO SCH ×4 (08:18→20:55)
[2018-10-13] MEDS: Morphine Sulfate ER (12 HR) 30 MG TABLET.ER PO SCH ×2 (08:18→21:14)
[2018-10-13] MEDS: Lactobacillus 1 EACH CAP.SPRINK PO SCH (08:18)
[2018-10-13] MEDS: Metoprolol XL (24 HR) Succ 25 MG TAB.ER.24H PO SCH (08:18)
[2018-10-13] MEDS: Budesonide/Formoterol 160/4.5 1 PUFF INH IH SCH ×2 (10:29→20:18)
[2018-10-13] MEDS: Tiotropium 18 MCG inhalation IH SCH (10:29)
--- NOTE | 2018-10-13 11:44 | Internal Med Progress Note ---
Date of Encounter: 10/13/18 Time of Encounter: 11:42 - Assessment and plan (1) Upper GI bleed Current Visit: Yes Status: Acute Assessment and plan: No acute issues. Patient patient states that he had several bowel movement over the past few days and denies any tarry stool or quincy blood.. Patient's labs showed hemoglobin stable at 8.7. Patient denies any abdominal cramping. We will continue to monitor closely. (2) Pneumonia Current Visit: No Status: Acute Assessment and plan: Patient continues to have fine basilar rales but otherwise no congestion or wheezes heard. Patient states he has a productive cough with thick white sputum received. He has remained afebrile. Continues to finish out his round of antibiotics. We will continue to monitor closely. Qualifiers: Pneumonia type: due to unspecified organism Laterality: bilateral Lung location: lower lobe of lung Qualified Code(s): J18.1 - Lobar pneumonia, unspecified organism (3) Hypertension Current Visit: No Status: Chronic Assessment and plan: Vital signs are stable. We will continue with current medications Qualifiers: Hypertension type: unspecified Qualified Code(s): I10 - Essential (primary) hypertension - Time Spent With Patient less than 15 minutes - Subjective Interval history: Patient appears relaxed currently denies any discomforts or shortness of breath. He has productive cough with a white thick sputum received. Patient reportedly is oxygen dependent and wears oxygen at home. This morning per therapy, he desatuated to mid-80's while walking with O2 that had been decreased to 3 L. Patient was placed back on 4 L was able to maintain saturation greater than 90%. Patient reports having several bowel movements over the past few days and states no tarry stools or quincy blood noted. - Constitutional Vitals: Temp Pulse Resp BP Pulse Ox 98.0 F 71 22 147/87 90 10/13/18 06:00 10/13/18 06:00 10/13/18 10:33 10/13/18 06:00 10/13/18 10:33 General appearance: Present: A&O X 3, pleasant - Head Head exam: Present: atraumatic, normocephalic - Eye Eye exam: Present: PERRL, conjuntiva pink, sclera anicteric Pupils: Present: PERRL - Neck Neck exam general surgery: Present: supple, trachea midline. Absent: lymphadenopathy - Respiratory Respiratory exam: Present: CTAB, rales. Absent: accessory muscle use, rhonchi, wheezes Additional comments: Patient continues with fine posterior bibasilar rales otherwise his lungs are clear. Respiratory effort appears relaxed at rest. No productive cough noted. - Cardiovascular Cardiovascular exam: Present: RRR, +S1, +S2. Absent: diastolic murmur, gallop, rubs, systolic murmur - GI/Abdominal GI/Abdominal exam: Present: normal bowel sounds, soft, no peritoneal signs. Absent: distended, tenderness - Extremities Exam Extremities exam: Present: warm, radial pulses palpable and symmetrical. Absent: calf tenderness, cyanotic, pedal edema - Neurological Exam Neurological exam: Present: CN II-XII intact, oriented X3, no focal deficits. Absent: pronater drift, facial droop, speech deficit - Skin Skin exam: Present: dry, intact Internal Medicine: Result - Labs CBC & Chem 7: 10/13/18 05:15 10/13/18 05:15 Labs: Short CBC 10/13/18 Range/Units 05:15 WBC 10.5 (4.3-11.1) K/mcL Hgb 8.7 L (12.9-16.9) g/dL Hct 28.6 L (37.5-50.1) % Plt Count 340 (140-400) K/mcL Neutrophils # 7.3 (1.6-8.9) K/mcL BMP 10/13/18 05:15 Sodium 138 Potassium 4.8 Chloride 105 Carbon Dioxide 28 BUN 15 Creatinine 0.78 Glucose 100 Calcium 8.6 Liver Function 10/13/18 Range/Units 05:15 Total Bilirubin 0.2 L (0.3-1.0) mg/dL AST 28 (13-39) Units/L ALT 13 (7-52) Units/L Alkaline Phosphatase 68 (34-104) Units/L Albumin 2.5 L (3.5-5.7) g/dL Consult Discharge Plan - Plan Referrals: Breezy Stover MD [Primary Care Provider] -
[2018-10-13] MEDS: Azithromycin 250 MG TABLET PO SCH (16:21)
[2018-10-13] MEDS: Acetaminophen 325 MG TABLET PO PRN (19:29)
[2018-10-13] MEDS: Mirtazapine 15 MG TABLET PO SCH (20:55)
[2018-10-13] MEDS: Melatonin 3 MG TABLET PO SCH (20:55)
[2018-10-14] MEDS: Levothyroxine 25 MCG TABLET PO SCH (05:48)
[2018-10-14] MEDS: Acetaminophen 325 MG TABLET PO PRN (05:49)
[2018-10-14] MEDS: Sucralfate 1 GM TABLET PO SCH (06:35)
[2018-10-14 07:10] VITALS: BP 159/85
[2018-10-14] MEDS: Metoprolol XL (24 HR) Succ 25 MG TAB.ER.24H PO SCH (07:38)
[2018-10-14] MEDS: Morphine Sulfate ER (12 HR) 30 MG TABLET.ER PO SCH (07:39)
[2018-10-14] MEDS: Gabapentin 300 MG CAPSULE PO SCH (07:39)
[2018-10-14] MEDS: Fluticasone Propionate Nasal 50 MCG/SPRAY BOTTLE NS SCH (07:39)
[2018-10-14] MEDS: GuaiFENesin Liq 200 MG/10 ML UDC PO SCH (07:39)
[2018-10-14] MEDS: Lactobacillus 1 EACH CAP.SPRINK PO SCH (07:39)
[2018-10-14] MEDS: Tiotropium 18 MCG inhalation IH SCH (10:05)
[2018-10-14] MEDS: Budesonide/Formoterol 160/4.5 1 PUFF INH IH SCH (10:11)
--- NOTE | 2018-10-14 10:21 | Discharge Summary ---
Date of Encounter: 10/14/18 Time of Encounter: 10:19 - Discharge Diagnosis (1) Weakness Priority: Primary Status: Acute (2) Upper GI bleed Priority: Secondary Status: Acute (3) Sepsis Priority: Secondary Status: Acute Qualifiers: Sepsis type: sepsis due to unspecified organism Qualified Code(s): A41.9 - Sepsis, unspecified organism (4) Pneumonia Priority: Secondary Status: Acute Qualifiers: Pneumonia type: due to unspecified organism Laterality: bilateral Lung location: lower lobe of lung Qualified Code(s): J18.1 - Lobar pneumonia, unspecified organism (5) Anxiety and depression Priority: Secondary Status: Chronic (6) Hypertension Priority: Secondary Status: Chronic Qualifiers: Hypertension type: unspecified Qualified Code(s): I10 - Essential (primary) hypertension (7) GERD (gastroesophageal reflux disease) Priority: Secondary Status: Chronic Qualifiers: Esophagitis presence: esophagitis presence not specified Qualified Code(s): K21.9 - Gastro-esophageal reflux disease without esophagitis (8) Hypothyroidism Priority: Secondary Status: Chronic Qualifiers: Hypothyroidism type: unspecified Qualified Code(s): E03.9 - Hypothyroidism, unspecified Hospital course: Mr. Garcia is a 68 year old male who had a GI bleed and receive support and transfusion for same. He was also found to have community-acquired pneumonia and received antibiotics for same. He is transferred here because of weakness and for rehabilitation and forms of physical and occupational therapy. He progressed well while here and his breathing improved and his weakness was significantly better by discharge. He is to be discharged to outpatient physical therapy and follow-up with his primary care physician. He occasionally desaturated including today with physical therapy but generally this is quickly resolved with rest. Patient has no complaint of chest discomfort, dyspnea, orthopnea, palpitations, nausea or vomiting, constipation or diarrhea, other changes in bowel habits, difficulty with urination, rash or itching, or other new complaints, except as mentioned above. Review of systems is otherwise negative. I discussed management of patient's care with nursing staff. Discharge discussed with: patient - Time Spent with Patient Total time spent providing and/or coordinating discharge services: - Discharge Medications Prescriptions: No Action Budesonide/Formoterol 160/4.5 [Symbicort 160/4.5] 2 puff IH BID Albuterol Neb [Proventil Neb] 2.5 mg IH QID PRN PRN Reason: Shortness Of Breath Gabapentin [Neurontin] 1,200 mg PO HS Gabapentin [Neurontin] 900 mg PO QAM Levothyroxine [Synthroid] 25 mcg PO DAILY L. Acidophilus/Pectin, [place] [Acidophilus Probiotic Capsule] 1 cap PO DAILY Fluticasone Propionate Nasal [Flonase] 2 spray NS DAILY Albuterol Sulfate [Proventil Inhaler] 2 puff IH Q6HR PRN PRN Reason: Shortness Of Breath guaiFENesin [Guaifenesin] 400 mg PO TID Metoprolol Succinate [Toprol Xl] 12.5 mg PO DAILY Tiotropium [place] [Spiriva Respimat] 2 puff IH DAILY Furosemide [Lasix] 40 mg PO DAILY PRN PRN Reason: Edema Meloxicam [Mobic] 7.5 mg PO BID Escitalopram [Lexapro] 20 mg PO QAM Melatonin [Melatin] 3 mg PO HS Prazosin [Minipress] 5 mg PO QAM Ergocalciferol (VITAMIN D2) [Vitamin D2] 50,000 unit PO FR Atorvastatin [Lipitor] 20 mg PO DAILY Azithromycin [Zithromax] 500 mg PO MOWEFR Benzoyl Peroxide [Bpo] 1 appl TP DAILY PRN PRN Reason: INFECTION/PIMPLE Mirtazapine [Remeron] 15 mg PO HS Gabapentin [Neurontin] 900 mg PO QPM Sucralfate [Carafate] 1 gm PO QIDAC #99 tablet levoFLOXacin [Levaquin] 750 mg PO DAILY #5 tablet Lisinopril [Zestril] 20 mg PO DAILY #0 Omeprazole [PriLOSEC] 40 mg PO BID #60 cap Home Medications: Albuterol Neb [Proventil Neb] 2.5 mg IH QID PRN 12/23/15 [History] Budesonide/Formoterol 160/4.5 [Symbicort 160/4.5] 2 puff IH BID 12/23/15 [History] Fluticasone Propionate Nasal [Flonase] 2 spray NS DAILY 12/23/15 [History] Gabapentin [Neurontin] 1,200 mg PO HS 12/23/15 [History] Gabapentin [Neurontin] 900 mg PO QAM 12/23/15 [History] L. Acidophilus/Pectin, [place] [Acidophilus Probiotic Capsule] 1 cap PO DAILY 12/23/15 [History] Levothyroxine [Synthroid] 25 mcg PO DAILY 12/23/15 [History] Albuterol Sulfate [Proventil Inhaler] 2 puff IH Q6HR PRN 08/14/16 [History] Furosemide [Lasix] 40 mg PO DAILY PRN 06/10/18 [History] Meloxicam [Mobic] 7.5 mg PO BID 06/10/18 [History] Metoprolol Succinate [Toprol Xl] 12.5 mg PO DAILY 06/10/18 [History] Tiotropium [place] [Spiriva Respimat] 2 puff IH DAILY 06/10/18 [History] guaiFENesin [Guaifenesin] 400 mg PO TID 06/10/18 [History] Ergocalciferol (VITAMIN D2) [Vitamin D2] 50,000 unit PO FR 09/23/18 [History] Escitalopram [Lexapro] 20 mg PO QAM 09/23/18 [History] Melatonin [Melatin] 3 mg PO HS 09/23/18 [History] Prazosin [Minipress] 5 mg PO QAM 09/23/18 [History] Atorvastatin [Lipitor] 20 mg PO DAILY 09/25/18 [History] Azithromycin [Zithromax] 500 mg PO MOWEFR 09/25/18 [History] Benzoyl Peroxide [Bpo] 1 appl TP DAILY PRN 09/25/18 [History] Gabapentin [Neurontin] 900 mg PO QPM 09/25/18 [History] Mirtazapine [Remeron] 15 mg PO HS 09/25/18 [History] Lisinopril [Zestril] 20 mg PO DAILY #0 10/06/18 [Rx] Omeprazole [PriLOSEC] 40 mg PO BID #60 cap 10/06/18 [Rx] Sucralfate [Carafate] 1 gm PO QIDAC #99 tablet 10/06/18 [Rx] levoFLOXacin [Levaquin] 750 mg PO DAILY #5 tablet 10/06/18 [Rx] Allergies/Adverse Reactions: Allergy/AdvReac Type Severity Reaction Status Date / Time No Known Allergies Allergy Verified 09/25/18 10:36 Date of admission: 10/06/18 16:06 Primary care physician: Breezy Stover MD Consults: 10/06/18 17:25 Consult to Occupational Therapy [CONS] Routine Comment: Evaluate, develop and implement POC Reason for Consult: rehab s/p GI bleed & PNE Does patient have active BEDREST order?: No Is patient medically & hemodynamically stable?: Yes Patient assessed for mobility or mobilized this visit?: Yes Consult to Physical Therapy [CONS] Routine Comment: Evaluate, develop and implement POC Reason for Consult: rehab s/p GI bleed & PNE Does patient have active BEDREST order?: No Is patient medically & hemodynamically stable?: Yes Patient assessed for mobility or mobilized this visit?: Yes Consult to Recreational Therapy [CONS] Routine Comment: Evaluate, develop and implement POC Consult to Academic Affairs Vice President [CONS] Routine Reason for SW Consult: rehab s/p GI bleed & PNE CT patient/Green Team Discharging clinician: Breezy Stover Anticipated date of discharge: 10/14/18 - Constitutional Vitals: Temp Pulse Resp BP Pulse Ox 98.0 F 74 16 159/85 96 10/14/18 07:09 10/14/18 07:09 10/14/18 07:09 10/14/18 07:09 10/14/18 07:09 Exam: Discussed care with other providers and/or nursing. Patient has no complaint of chest discomfort, dyspnea, orthopnea, palpitations, nausea or vomiting, constipation or diarrhea, other changes in bowel habits, difficulty with urination, rash or itching, or other new complaints, except as mentioned above. Review of systems is otherwise negative. Examination: (Except as mentioned above): General: In no apparent distress. Alert and oriented 3. Nondiaphoretic. Patient is on 3 L of nasal cannula oxygen. Head: Atraumatic and normocephalic. Respiratory: No use of accessory muscles. Lungs are clear throughout. Nearly normal airflow. Cardiovascular: Regular rate and rhythm without murmur appreciated. Abdomen: Bowel sounds are normal. No hepatosplenomegaly mass or tenderness appreciated. Obese and therefore difficult to palpate deeply. Extremities: No cyanosis clubbing or edema. Patient is examined upright in chair and this also limits exam. Skin: Warm and non-diaphoretic with no new lesions noted. - Patient Status Disposition: Home, Self-Care Condition: Fair Functional capacity at discharge: uses cane/walker Overall status at discharge: patient is progressing back to baseline - Discharge Instructions Instructions: Gastrointestinal Bleeding (DC), Bacterial Pneumonia (DC) Follow Up With: Justin García MD [Partnered Physician] - (Office did not answer. Web Request made.) Additional Instructions: Follow-up appointments: If there is not an appointment listed below, please call your physician and schedule a follow-up appointment. If you have congestive heart failure and your symptoms return, make an appointment with your physician. Medication List: Carry an up to date list of medications you are taking at all time. We have given you an updated medication list including any new medications that you have been prescribed. Please provide that list to your primary provider Symptoms: If your condition changes or you experience any of the following symptoms, notify your physician immediately: Unusual or worsening pain, fever, persistent nausea and vomiting, bleeding, increase in swelling (especially in your legs), sudden weight gain, extreme dizziness, chest pain, increased drainage or redness from a wound or incision. Go to the emergency department if you experience a problem with breathing. Weights: If you have a history of swelling or shortness of breath, weigh yourself daily and notify your physician if you have a weight gain of two or more pounds in one day or 5 or more pounds in a week. If you experience any of the warning signs for stroke: Sudden numbness or weakness of the face, arm or leg; especially on one side of the body, sudden confusion, trouble speaking or understanding, sudden trouble seeing in one or both eyes, sudden trouble walking, dizziness, loss of balance or coordination, sudden sever headache with no cause; Call 911 or go to the emergency room. Stroke is a medical emergency. Some risk factors for stroke: Age, cigarette smoking, diabetes, excessive alcohol consumption, family history, high blood pressure, overweight, physical inactivity, prior stroke, heart attack, diagnosis of carotid artery stenosis or other artery disease. If you smoke, STOP: Smoking or tobacco use significantly increases your risk of heart and lung disease. Your chance of disease greatly increases if you continue to smoke. For more information, call the [place] tobacco quit line for smoking cessation 3-514-BGGY-NOW ( ) - Diet and Activity Activity: ambulate only with your walker Diet: low salt diet
[2018-10-14] MEDS ORDERED: Azithromycin 250 MG TABLET PO STA (10:57)
== END 2018-10-14 11:18 | disposition home or self-care (01) | DRG 945 ==
LOC: INPGRE 16:06